=== PATIENT | female | born 1955 | race Caucasian/White ===

== ENCOUNTER 2018-09-25 15:21 | Emergency (ER) | payer OTHER, SELFPAY ==
--- NOTE | 2018-09-25 20:01 | RAD ---
LEFT WRIST THREE VIEWS 09/25/18 An impacted fracture of the distal radius is present. Displacement is only slight. The articular surf chad does seem affected. The carpal bones appear intact. 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 IMPRESSION: Acute impacted fracture of the distal radius. POS: HOME
== END 2018-09-25 16:14 | disposition home or self-care (01) ==
LOC: BURERS 15:21
DX: S52.502A Unspecified fracture of the lower end of left radius, initial encounter for closed fracture (principal); I10 Essential (primary) hypertension; Z79.899 Other long term (current) drug therapy; W19.XXXA Unspecified fall, initial encounter
CPT/HCPCS: 29125